=== PATIENT | female | born 1975 | race American Indian/Alaskan Native ===

== ENCOUNTER 2019-02-23 14:30 | Emergency (ER) | payer BC ==
[2019-02-23 14:40] VITALS: BP 131/78
--- NOTE | 2019-02-23 14:43 | Event Note ---
ED Screening Note ED Screening Note: CHIN present in the bilateral temples that began three days ago has associated N/V feels similar to prior migraines hx of migraines, states she takes topamax, states she ran out of her medication, states she last took it in november no vision changes no numbness no weakness PMHx asthma no allergies to meds PSH hysterectomy This initial assessment/diagnostic orders/clinical plan/treatment(s) is/are subject to change based on patients health status, clinical progression and re- assessment by fellow clinical providers in the ED. Further treatment and workup at subsequent clinical providers discretion. Patient/guardian urged not to elope from the ED as their condition may be serious if not clinically assessed and managed. Initial orders include: meds
[2019-02-23] MEDS ORDERED: oxyCODONE /ACETAMINOPHEN 5-325MG TAB PO ONE (16:50)
[2019-02-23] MEDS ORDERED: ONDANSETRON 4 MG ODT TAB PO ONE (16:50)
[2019-02-23] MEDS ORDERED: SUMAtriptan SUCCINATE 6 MG/0.5 ML INJ SUB-Q ONE (16:50)
--- NOTE | 2019-02-23 17:03 | Emergency Department Report ---
ED Headache HPI - General Chief Complaint: Headache Stated Complaint: MIGRANE HEADACHE Time Seen by Provider: 02/23/19 16:49 Source: patient Exam Limitations: no limitations - History of Present Illness Initial Comments: This is a very pleasant healthy 43-year-old male female with a history of asthma and migraine headaches. She has had migraine headaches since adolescence. She formerly was on Topamax 50 mg daily to control her headaches. Her previous PCP closed her practice. Consequently she stopped taking Topamaxin October which had controlled the migraine headaches. Now she has typical bitemporal headache. Prior to Topamax she was having 2-3 headaches per week. Mild nausea. Pain is 8/10 severity. She is currently visiting her girlfriend in the area. She is [place] in an outside county in [place]. Timing/Duration: other (3 days) Quality: moderate, pressure Head Injury Location: temporal Recent Head Trauma: frequent headaches Associated Symptoms: denies symptoms Allergies/Adverse Reactions: Allergies No Known Allergies Allergy (Unverified 02/23/19 14:38) Home Medications: Ambulatory Orders SUMAtriptan succinate [Imitrex] 50 mg PO Q2H PRN #2 tablet 02/23/19 ED Review of Systems ROS: Stated complaint: MIGRANE HEADACHE Other details as noted in HPI Comment: All other systems reviewed and negative Constitutional: denies: fever, malaise Respiratory: denies: cough Cardiovascular: denies: chest pain Neurological: headache. denies: numbness, paresthesias ED Past Medical Hx - Past Medical History Previous Medical History?: Yes Hx Headaches / Migraines: Yes Hx Asthma: Yes - Surgical History Past Surgical History?: No - Social History Smoking Status: Never Smoker Substance Use Type: None, Prescribed - Medications Home Medications: Home Medications Medication Instructions Recorded Confirmed Last Taken Type SUMAtriptan succinate [Imitrex] 50 mg PO Q2H PRN #2 tablet 02/23/19 Unknown Rx ED Physical Exam - General Limitations: No Limitations General appearance: alert, in no apparent distress - Head Head exam: Present: atraumatic, normocephalic - Eye Eye exam: Present: normal appearance - ENT ENT exam: Present: mucous membranes moist - Neck Neck exam: Present: normal inspection, full ROM - Respiratory Respiratory exam: Present: normal lung sounds bilaterally. Absent: respiratory distress, wheezes, rales, rhonchi - Cardiovascular Cardiovascular Exam: Present: regular rate, normal rhythm, normal heart sounds. Absent: systolic murmur, diastolic murmur, rubs, gallop - GI/Abdominal GI/Abdominal exam: Present: soft, normal bowel sounds. Absent: distended, tenderness, guarding, rebound - Extremities Exam Extremities exam: Present: normal inspection - Neurological Exam Neurological exam: Present: alert, oriented X3 - Psychiatric Psychiatric exam: Present: normal affect, normal mood - Skin Skin exam: Present: warm, dry, intact, normal color. Absent: rash ED Course Vital Signs 02/23/19 14:38 Temperature 98.5 F Pulse Rate 75 Respiratory 18 Rate Blood Pressure 131/78 O2 Sat by Pulse 98 Oximetry ED Medical Decision Making - Medical Decision Making Migraine headache typical for patient. No red flags such as fever, neck stiffness, sudden onset. She received Imitrex Percocet Zofran and emergency department. Prescribed Imitrex and promethazine. Critical care attestation.: If time is entered above; I have spent that time in minutes in the direct care of this critically ill patient, excluding procedure time. ED Disposition Clinical Impression: Migraine headache Disposition: DC-01 TO HOME OR SELFCARE Is pt being admited?: No Does the pt Need Aspirin: No Condition: Stable Instructions: Migraine Headache (ED) Prescriptions: SUMAtriptan succinate [Imitrex] 50 mg PO Q2H PRN #2 tablet PRN Reason: Headache Referrals: PRIMARY CARE,MD [Primary Care Provider] - 3-5 Days
== END 2019-02-23 17:29 | disposition home or self-care (01) ==
LOC: ED 14:30
DX: G43.909 Migraine, unspecified, not intractable, without status migrainosus (principal); J45.909 Unspecified asthma, uncomplicated
CPT/HCPCS: 96372; 99282; J3030; Q0162